=== PATIENT | male | born 1990 | race African-American/Black ===

== ENCOUNTER 2017-03-19 07:27 | Emergency (ER) | payer MEDICAID, OTHER ==
[~2017-03-19] VITALS: Ht 162.6 cm; Wt 69.0 kg
[2017-03-19] MEDS ORDERED: KETOROLAC 60MG/2ML VIAL IM ONE (10:45)
[2017-03-19 10:46] LABS: CLARITY URINE CLEAR (CLEAR); COLOR URINE YELLOW (YELLOW); GLUCOSE URINE NEGATIVE (NEGATIVE); KETONES URINE NEGATIVE (NEGATIVE); LEUKOCYTE ESTERASE URINE NEGATIVE (NEGATIVE); NITRITE URINE NEGATIVE (NEGATIVE); OCCULT BLOOD URINE NEGATIVE (NEGATIVE); PROTEIN URINE NEGATIVE (NEGATIVE); SPECIFIC GRAVITY URINE 1.018 (1.005-1.030)
[2017-03-19] MEDS ORDERED: AZITHROMYCIN 500 MG TABLET PO ONE (12:00)
[2017-03-19] MEDS ORDERED: CEFTRIAXONE SODIUM 250 MG/VIAL IM ONE (12:00)
[2017-03-19] MEDS ORDERED: LIDOCAINE HCL 1% 20ML VIAL (Pyxis) INJ MC ONE (12:15)
[2017-03-19 12:19] VITALS: BP 126/88
[2017-03-21 04:17] LABS: CHLAMYDIA TRACHOMATIS NAA Negative (Negative); NEISSERIA GONORRHOEAE NAA Negative (Negative)
== END 2017-03-19 12:19 | disposition home or self-care (01) ==
LOC: ER 09:41
DX: R30.0 Dysuria (principal); F12.10 Cannabis abuse, uncomplicated
CPT/HCPCS: 81003; 87491; 87591; 96372; 99284; J0696; J1885; J3490

== ENCOUNTER 2017-03-23 07:58 | Emergency (ER) | payer MEDICAID ==
[~2017-03-23] VITALS: Ht 162.6 cm; Wt 69.0 kg
[2017-03-23 08:41] LABS: PROTHROMBIN TIME 10.5 sec (9.4-11.6)
[2017-03-23 08:42] LABS: BASOPHILS % 0.6 % (0.0-2.0); EOSINOPHILS % 0.9 % (0.0-5.0); HEMATOCRIT. 41.8 % (42.0-52.0); HEMOGLOBIN. 13.9 g/dL (14.0-18.0); LYMPHOCYTES % 14.2 % (20.0-50.0); MEAN CORPUSCULAR HEMOGLOBIN 30.5 pg (28.0-32.0); MEAN CORPUSCULAR VOLUME 91.6 fL (80.0-94.0); MONOCYTES % 8.2 % (2.0-8.0); NEUTROPHILS % 76.1 % (40.0-76.0); RED BLOOD CELL COUNT 4.56 mill/uL (4.7-6.1); RED CELL DISTRIBUTION WIDTH 13.5 % (11.6-14.6)
[2017-03-23 08:44] LABS: CARBON DIOXIDE 34 mEq/L (21-32); CHLORIDE 108 mEq/L (98-107)
[2017-03-23 09:12] LABS: MEAN PLATELET VOLUME 10.9 fl (7.4-10.4); PLATELET 101 x1000/uL (130-400)
[2017-03-23 10:53] LABS: CLARITY URINE CLEAR (CLEAR); COLOR URINE YELLOW (YELLOW); GLUCOSE URINE NEGATIVE (NEGATIVE); KETONES URINE TRACE (NEGATIVE); LEUKOCYTE ESTERASE URINE NEGATIVE (NEGATIVE); NITRITE URINE NEGATIVE (NEGATIVE); OCCULT BLOOD URINE NEGATIVE (NEGATIVE); PROTEIN URINE NEGATIVE (NEGATIVE); SPECIFIC GRAVITY URINE 1.025 (1.005-1.030); UROBILINOGEN URINE 0.2 E.U./dL (0.2-1.0)
[2017-03-23 11:50] VITALS: BP 115/61
== END 2017-03-23 11:52 | disposition short-term general hospital (02) ==
LOC: ER 08:08
DX: N47.2 Paraphimosis (principal); F12.10 Cannabis abuse, uncomplicated
CPT/HCPCS: 36415; 80053; 81003; 85025; 85610; 86592; 99285